=== PATIENT | female | born 1995 | race Caucasian/White ===

== ENCOUNTER → 2016-12-07 | Outpatient (CLI) | payer BC ==
[~2016-12-07] MED LIST: BCPILLS PO
== END | disposition home or self-care (01) ==
LOC: C.PAPS 12:04
PROVIDERS: ATTEND Obstetrics & Gynecology
DX: Z01.419 Encounter for gynecological examination (general) (routine) without abnormal findings (principal)

== ENCOUNTER → 2016-12-07 | Outpatient (CLI) | payer BC ==
[2016-12-09 00:16] LABS: CHLAMYDIA TRACH RNA*** NOT DETECTED (NOT DETECTED); GC (NEIS GONORRHOEAE)RNA** NOT DETECTED (NOT DETECTED)
== END | disposition home or self-care (01) ==
LOC: C.LABSPEC 11:33
PROVIDERS: ATTEND Obstetrics & Gynecology
DX: Z01.419 Encounter for gynecological examination (general) (routine) without abnormal findings (principal)

== ENCOUNTER 2022-09-08 06:17 | Inpatient (IN) ==
[2022-09-08] MEDS ORDERED: LACTATED RINGER'S 1,000 ML IV PRN (07:27)
[2022-09-08] MEDS ORDERED: ONDANSETRON INJ 2 MG/ML 2 ML VIAL IV PRN ×2 (07:27→16:11)
[2022-09-08] MEDS ORDERED: ONDANSETRON 4 MG OD TAB PO PRN (07:27)
[2022-09-08 07:49] LABS: Basophils # (auto) 0.07 K/uL (0-0.2); Basophils % (auto) 0.4 %; Eosinophils # (auto) 0.05 K/uL (0-0.50); Eosinophils % (auto) 0.3 %; Hematocrit (blood only) 34.9 % (34.1-44.9); Immature Granulocytes # (auto) 0.49 K/uL (0.00-0.02); Immature Granulocytes % (auto) 2.8 %; Lymphocytes % (auto) 8.7 %; Mean Corpuscular Hemoglobin 31.4 pg (25.0-34.0); Mean Corpuscular Hgb Conc 34.4 g/dL (32.0-36.0); Mean Corpuscular Volume 91.4 fL (80.0-100.0); Mean Platelet Volume 10.6 fL (9.4-12.3); Monocytes # (auto) 0.77 K/uL (0.24-0.82); Monocytes % (auto) 4.5 %; Neutrophils # (auto) 14.36 K/uL (1.4-6.5); Neutrophils % (auto) 83.3 %; Platelet Count 146 K/uL (130-400); RDW Coefficient of Variation 12.6 % (11.5-14.5); RDW Standard Deviation 41.4 fL (36.4-46.3); Red Blood Count 3.82 M/uL (3.93-5.22); White Blood Count 17.24 K/ul (4.8-10.8)
--- NOTE | 2022-09-08 08:07 | History & Physical Report ---
Date of Service September 08, 2022 Assessment & Plan (1) 38 weeks gestation of : (2) Abdominal pain in : Plan outpt status. bps are elevated. labs pending. ivf bolusing. zofran given. will see if meets criteria for gest htn or if labs abnl in interim. pt and partner aware. nst reactive. History of Present Illness Chief Complaint: abdominal pain, n/v, 38wks Primary Care Provider: Shana Bermudez MD 27yo at 38+wks presents to LD with abdominal pain/cramps, back pain and nausea vomiting x 12hr. She called early this am saying symptoms were worsening and advised to come in. Denies rom, vb. +FM. ? ctx. Denies sims, visual change. No ruq pain, her crampy pain is more abdominal. PNC c/b depression. PNL rh pos, ri, gbs neg. Allergies Allergy/AdvReac Type Severity Reaction Status Date / Time No Known Allergies Allergy Verified 09/06/22 11:46 Home Medications Medication Instructions Recorded Confirmed Type bupropion HCl 150 mg 24 hr tablet, 150 mg PO QAM 02/01/22 09/08/22 History extended release (Wellbutrin XL) prenat.vits,luis antonio,[id number] 1 tab PO DAILY 02/01/22 09/08/22 History Patient History Medical History (Updated 09/08/22 @ 08:27 by Michelle Garcia MD, FACOG) Depression No acute medical problems Surgical History S/P wisdom tooth extraction Social History (Updated 09/08/22 @ 06:35 by Nury Miranda) Smoking Status: Never smoker Hx Alcohol Use: No Hx Substance Use: No Preferred Language: Algerian Communication Ability: Effective Edger Automatic Required: No Beliefs That Will Affect Care: None marital status: marital status details: Dagoberto [phone] Current Living Situation: Spouse Current Living Situation Comment: lives with spouse, 4 cats, spouse to change litter current occupational status: employed 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 no clonus Psychiatric: A+Ox3, euthymic affect Genitourinary: Manual OB Exam: + cervical dilation (per nurse) 1 cm OB Exam Monitor Tracing: + external FHT monitor used, + external uterine monitor used (irritability), + category I and + normal FHT variability Results & Data ([facility]) Vital Signs (Past 12 Hours) Vital Signs Temp Pulse Resp BP 09/08/22 07:49 90 143/102 H 09/08/22 07:45 88 136/100 09/08/22 07:39 90 136/92 09/08/22 07:21 83 141/100 H 09/08/22 07:11 82 137/97 09/08/22 07:01 80 136/97 09/08/22 06:34 88 146/98 H 09/08/22 06:37 98.2 F 18 Coding Level of Care Code None Diagnoses 38 weeks gestation of Z3A.38 Abdominal pain in O26.899; R10.9
[2022-09-08 08:29] LABS: Creatinine Urine Random 101.5 mg/dl; Protein Creatinine Ratio Urine 0.1 (0-0.2); Total Protein Urine Random 10.8 mg/dl (0-11.9)
[2022-09-08 09:02] LABS: Albumin Globulin Ratio 1.2 (0.9-2); Albumin Level 3.3 gm/dl (3.4-5.0); BUN Creatinine Ratio 8.1 (10-20); Bilirubin,Total 0.8 mg/dl (0.2-1.0); Creatinine Clr Calc Pharmacy 78.5 ml/min; Est GFR (African American) 78.8 ml/min; Globulin 2.7 gm/dl (2.5-4.0)
[2022-09-08] MEDS ORDERED: LIDOCAINE 1% LOCAL 20 ML VIAL INFIL PRN (09:25)
[2022-09-08] MEDS ORDERED: OXYTOCIN 30 UNITS/500 ML BAG IV PRN ×2 (09:25→09:59)
[2022-09-08] MEDS ORDERED: BUTORPHANOL TARTRATE 1 MG/ML VIAL IV ONE ×2 (09:38→12:37)
--- NOTE | 2022-09-08 09:41 | History & Physical Report ---
Date of Service September 08, 2022 Assessment & Plan (1) 38 weeks gestation of : (2) Preeclampsia: Plan plan admission for probable preeclampsia. Patient continues to have pain and has worsened since admission. May be in early labor. Pressures are elevated but not severe. Her etl data architect is elevated as well. Plan to hydrate well. moctezuma placed for cervical ripening. Plan pit. Will treat pain with Stadol right now. Likely will need an epidural. Will continue to monitor closely. History of Present Illness Chief Complaint: abdominal pain Primary Care Provider: Shana Bermudez MD Patient is a 27yowf with iup at 38 3/7 weeks who presents to labor and delivery complaining of all over abdominal pain. She has had intermittent boughts of this for the last several weeks. Patient notes is is lower abdomen and wrapping around from the back. She notes this is associated with n/v. wbc is 17K, h/h nl, plts nl, lfts nl. pro/etl data architect ratio is 0.1. etl data architect is 1.11 up by 50% since checked in 08/13. Pressures have also been elevated here in labor and delivery. I think the patient is developing preeclampsia and plan for manuela ction. Patient notes that her pain is getting worse. Her uterus is palpating soft during this time, she has lillian. no lof/vb. +fm. and Delivery Plans Covid Vaccine x 2 (Pfizer) Flu shot given 02/18/22 SB Flu shot given 07/01/22 SB multiple evaluations for abdominal pain OB Labs: Blood Type A Positive 02/24/22 Antibody Screen NEGATIVE 02/24/22 Hemoglobin 13.0 g/dl (12.0-16.0) 08/08/22 Hematocrit 37.0 % (34.1-44.9) 08/08/22 Mean Corpuscular Volume 90.2 fL (80.0-100.0) 08/08/22 Platelet Count 163 K/uL (130-400) 08/08/22 Rubella IgG Antibody Immune (Immune) 02/24/22 Rapid Plasma Reagin Nonreactive (Nonreactive) 02/24/22 Hepatitis B Surface Antigen. NON-REACTIVE (NON-REACTIVE) 02/24/22 Hepatitis C Antibody (EIA) NON-REACTIVE (NON-REACTIVE) 02/24/22 HIV (1&2) Ag and Ab Confirmation NON-REACTIVE (NON-REACTIVE) 02/24/22 Glucose 1 Hour 50 gm Load 72 mg/dl (70-130) 07/01/22 Maternal Serum Alpha Fetoprotein 48.9 ng/mL 04/06/22 OB Optional Labs: Chlamydia trachomatis RNA NOT DETECTED (NOT DETECTED) 02/09/22 Neisseria gonorrhoeae RNA NOT DETECTED (NOT DETECTED) 02/09/22 Alpha Fetoprotein Triple Screen SEE NOTE 04/06/22 Labs Reviewed: cfdna-low risk--mln Declines cf/sma--mln 02/24/22- Hep B- Non reactive, Hep C- Non reactive, HIV- Non reactive afp neg gbs neg Allergies Allergy/AdvReac Type Severity Reaction Status Date / Time No Known Allergies Allergy Verified 09/06/22 11:46 Home Medications Medication Instructions Recorded Confirmed Type bupropion HCl 150 mg 24 hr tablet, 150 mg PO QAM 02/01/22 09/08/22 History extended release (Wellbutrin XL) prenat.vits,luis antonio,[id number] 1 tab PO DAILY 02/01/22 09/08/22 History Patient History Medical History (Updated 09/08/22 @ 10:04 by Candy Barbour MD, FACOG) Depression No acute medical problems Surgical History S/P wisdom tooth extraction Social History (Updated 09/08/22 @ 06:35 by Nury Miranda) Smoking Status: Never smoker Hx Alcohol Use: No Hx Substance Use: No Preferred Language: Amharic Communication Ability: Effective Pole Framer Machine Required: No Beliefs That Will Affect Care: None marital status: marital status details: Dagoberto [phone] Current Living Situation: Spouse Current Living Situation Comment: lives with spouse, 4 cats, spouse to change litter current occupational status: employed 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 Psychiatric: A+Ox3, euthymic affect Genitourinary: cx--1/80/-2/soft/ toco--lillian, irritability efm--130s with mod variability, accels to 170s, no decels speculum placed , moctezuma placed through cervix, balloon inflated to 35cc and attached to leg Results [facility] Data ([facility]) Vital Signs (Past 12 Hours) Vital Signs Temp Pulse Resp BP 09/08/22 08:50 82 154/94 H 09/08/22 08:20 86 136/95 09/08/22 07:49 90 143/102 H 09/08/22 07:45 88 136/100 09/08/22 07:39 90 136/92 09/08/22 07:21 83 141/100 H 09/08/22 07:11 82 137/97 09/08/22 07:01 80 136/97 09/08/22 06:34 88 146/98 H 09/08/22 06:37 36.8 C 18 Coding Level of Care Code None Diagnoses 38 weeks gestation of Z3A.38 Preeclampsia O14.90
[2022-09-08] MEDS: LACTATED RINGER'S 1,000 ML IV PRN ×3 (12:52→22:14)
[2022-09-08] MEDS ORDERED: fentaNYL citrate 100 MCG/2 ML VIAL ONE (15:53)
[2022-09-08] MEDS ORDERED: SODIUM CHLORIDE 0.9% INJ 10 ML VIAL ONE (15:53)
[2022-09-08] MEDS ORDERED: BUPIVACAINE 0.25% 30 ML VIAL ONE ×2 (15:53→21:01)
[2022-09-08] MEDS ORDERED: ePHEDrine sulfate 50 MG/ML AMP ONE (15:53)
[2022-09-08] MEDS ORDERED: LIDOCAINE 2%/EPINEPHRINE 1:200,000 20 ML SDV ONE ×2 (15:53→21:14)
[2022-09-08] MEDS ORDERED: fentaNYL 2MCG/ML ROPIVACAINE 1.25MG/ML 100 ML BAG EPI ONE (15:54)
[2022-09-08] MEDS ORDERED: NALOXONE HCL 1 MG in SODIUM CHLORIDE 0.9% 1000ML 1,000 ML IV PRN (16:11)
[2022-09-08] MEDS ORDERED: NALOXONE HCL 0.4 MG/1 ML VIAL/CARP IV PRN (16:11)
[2022-09-08] MEDS ORDERED: diphenhydrAMINE 50 MG/ML VIAL IV PRN (16:11)
[2022-09-08] MEDS ORDERED: ePHEDrine sulfate 50 MG/ML AMP IV PRN (16:11)
[2022-09-08] MEDS ORDERED: NALBUPHINE HCL INJ 10 MG/ML AMP IV PRN (16:11)
--- NOTE | 2022-09-08 16:16 | Anesthesiology Consultation ---
Date of Service September 08, 2022 Assessment & Plan (1) Encounter for pre-operative examination: Chart Review Chart Review: Patient NOT seen in Pre Admission Testing and Acceptable Risk for Labor Epidural Consults Requested none History Height/Weight Height: 5 ft 4 in Weight: 81.193 kg Allergies Allergy/AdvReac Type Severity Reaction Status Date / Time No Known Allergies Allergy Verified 09/08/22 11:25 Medications Home Medications Medication Instructions Recorded Confirmed Last Taken bupropion HCl 150 mg 24 hr tablet, 150 mg PO QAM 02/01/22 09/08/22 09/07/22 09:00 extended release (Wellbutrin XL) prenat.vits,luis antonio,[id number] 1 tab PO DAILY 02/01/22 09/08/22 09/07/22 09:00 Active Medications Generic Name Dose Route Start Last Admin Trade Name Freq PRN Reason Stop Dose Admin Lactated Ringer's 1,000 mls @ 125 mls/hr 09/08/22 07:27 09/08/22 12:53 Lr IV 10/08/22 07:26 Infused .Q8H PRN Infusion L&D Protocol Protocol Lactated Ringer's 1,000 mls @ 125 mls/hr 09/08/22 09:25 09/08/22 16:28 Lr IV 09/10/22 09:24 999 mls/hr .Q8H PRN Administration L&D Protocol Protocol Oxytocin 30 units in 500 mls @ 5 mls/hr 09/08/22 09:59 09/08/22 13:30 Pitocin IV 09/10/22 09:58 0.3 units/hr .Q24H PRN 5 mls/hr Labor Induction/Augmentation Titration Protocol 0.3 UNITS/HR Ondansetron HCl 4 mg 09/08/22 07:27 09/08/22 08:16 Ondansetron Inj 2 Mg/Ml 2 Ml Vial IV 10/08/22 07:26 4 mg Q4H PRN Administration Nausea And Vomiting Past Medical History Medical History Depression No acute medical problems Past Surgical History Surgical History S/P wisdom tooth extraction Social History Smoking Status: Never smoker Hx Alcohol Use: No Hx Substance Use: No substance use type: does not use Physical Exam Vital Signs Last Vital Signs Temp 36.8 C 09/08/22 15:37 Pulse 82 09/08/22 15:46 Resp 18 09/08/22 15:37 BP 156/101 H 09/08/22 15:46 Testing Laboratory Results 09/08/22 07:36 09/08/22 07:36
[2022-09-08] MEDS: fentaNYL 2MCG/ML ROPIVACAINE 1.25MG/ML 100 ML BAG EPI PRN ×2 (16:38→23:23)
--- NOTE | 2022-09-08 18:32 | Labor Progress Brief Note ---
Date of Service September 08, 2022 Subjective Patient got epidural and comfortable. bulb has fallen out. Assessment & Plan (1) Preeclampsia: Plan increase pitocin. blood pressures reasonable. fetus category one. anticipate . Admission and Anticipated Discharge Date Admission Date: September 08, 2022 Physical Exam Physical Exam: cx--5/80/-2, bloody show toco--q3-5, pit at 5 efm--130s with mod variability, accels to 150s, no decels arom clear fluid Results & Data ([facility]) Vital Signs (Past 12 Hours) Vital Signs Temp Pulse Resp BP Pulse Ox 09/08/22 18:24 100 H 96 09/08/22 18:19 95 H 97 09/08/22 18:16 84 133/86 09/08/22 18:14 91 H 96 09/08/22 18:09 98 H 97 09/08/22 18:04 82 96 09/08/22 18:01 96 H 138/89 09/08/22 17:59 95 H 97 09/08/22 17:54 100 H 96 09/08/22 17:49 99 H 97 09/08/22 17:46 93 H 134/92 09/08/22 17:44 94 H 97 09/08/22 17:39 93 H 97 09/08/22 17:34 90 97 09/08/22 17:31 111 H 132/89 09/08/22 17:29 98 H 97 09/08/22 17:24 100 H 98 09/08/22 17:19 109 H 98 09/08/22 17:16 110 H 18 130/83 09/08/22 17:14 98 H 96 09/08/22 17:11 109 H 129/88 09/08/22 17:09 96 H 97 09/08/22 17:06 91 H 132/84 09/08/22 17:04 108 H 98 09/08/22 17:00 117 H 129/80 09/08/22 16:59 111 H 98 09/08/22 16:56 118 H 138/93 09/08/22 16:54 113 H 99 09/08/22 16:49 120 H 99 09/08/22 16:50 109 H 138/90 09/08/22 16:48 115 H 132/86 09/08/22 16:46 110 H 141/90 H 09/08/22 16:44 98 09/08/22 16:44 104 H 09/08/22 16:44 100 H 145/94 H 09/08/22 16:42 98 H 141/91 H 09/08/22 16:39 89 99 09/08/22 16:40 96 H 154/97 H 09/08/22 16:38 96 H 143/94 H 09/08/22 16:36 102 H 145/92 H 09/08/22 16:34 98 H 96 09/08/22 16:29 96 H 99 09/08/22 16:24 95 H 96 09/08/22 15:46 82 156/101 H 09/08/22 15:43 76 160/108 H 09/08/22 15:42 73 154/106 H 09/08/22 15:40 71 152/103 H 09/08/22 15:37 18 09/08/22 15:37 36.8 C 18 09/08/22 14:39 73 20 141/97 H 09/08/22 13:38 85 20 140/95 09/08/22 12:38 68 20 152/92 H 09/08/22 11:38 77 153/97 H 09/08/22 11:08 20 09/08/22 11:08 36.8 C 20 09/08/22 10:39 78 18 147/99 H 09/08/22 08:50 82 154/94 H 09/08/22 08:20 86 136/95 09/08/22 07:49 90 143/102 H 09/08/22 07:45 88 136/100 09/08/22 07:39 90 136/92 09/08/22 07:21 83 141/100 H 09/08/22 07:11 82 137/97 09/08/22 07:01 80 136/97 09/08/22 06:34 88 146/98 H 09/08/22 06:37 36.8 C 18 Coding Level of Care Code None Diagnoses Preeclampsia O14.90
[2022-09-08] MEDS ORDERED: LABETALOL HCL IV 5 MG/ML 20ML IV STA (21:12)
--- NOTE | 2022-09-08 22:47 | Labor Progress Brief Note ---
Date of Service September 08, 2022 Subjective Patient continues to be intermittently very painful. Assessment & Plan (1) Preeclampsia: Plan Patient has poor pain tolerance and poor pain management at this time. Plan to have anesthesia evaluate again. Her pressures are mildly high when comfortable, but when she is uncomfortable, her pressures become quite elevated and she is also shaking. I do not believe her elevated pressures are from pet, she has no s/s of pet currently. Plan to place moctezuma to see if constantly empty bladder helps. IUPC placed to evaluate contractions and initially look quite poor. Fetus category one. Will need to increase pitocin to get an adequate contraction pattern. Will continue to attempt to get better pain management. Admission and Anticipated Discharge Date Admission Date: September 08, 2022 Physical Exam Physical Exam: cx--100/-1, some molding toco--q2-3min, pit at 10 efm--130s with mod variability, accels to 160s, no decels Results & Data ([facility]) Vital Signs (Past 12 Hours) Vital Signs Temp Pulse Resp BP Pulse Ox 09/08/22 19:00 36.8 C 18 09/08/22 22:39 101 H 98 09/08/22 22:38 99 H 169/106 H 09/08/22 22:34 99 H 99 09/08/22 22:29 76 100 09/08/22 22:24 99 H 99 09/08/22 22:19 95 H 98 09/08/22 22:14 106 H 97 09/08/22 22:13 93 H 157/82 H 09/08/22 22:05 16 09/08/22 22:05 16 09/08/22 22:09 100 H 96 09/08/22 22:04 98 H 96 09/08/22 22:03 95 H 148/81 H 09/08/22 21:59 98 H 96 09/08/22 21:54 93 H 97 09/08/22 21:53 100 H 148/81 H 09/08/22 21:49 100 H 96 09/08/22 21:44 102 H 96 09/08/22 21:43 100 H 148/76 H 09/08/22 21:39 106 H 96 09/08/22 20:47 18 09/08/22 20:47 36.9 C 18 09/08/22 21:34 102 H 96 09/08/22 21:32 112 H 144/78 H 09/08/22 21:29 96 09/08/22 21:29 103 H 09/08/22 21:29 105 H 144/77 H 09/08/22 21:24 101 H 96 09/08/22 21:22 100 H 149/82 H 09/08/22 21:20 103 H 147/82 H 09/08/22 21:19 110 H 97 09/08/22 21:18 99 H 149/87 H 09/08/22 21:16 94 H 162/78 H 09/08/22 21:14 88 158/75 H 99 09/08/22 21:12 98 H 173/104 H 09/08/22 21:10 91 H 172/107 H 09/08/22 21:09 96 H 98 09/08/22 21:06 90 177/98 H 09/08/22 21:04 88 97 09/08/22 21:03 91 H 176/104 H 09/08/22 20:59 91 H 97 09/08/22 20:54 97 H 170/107 H 97 09/08/22 20:53 94 H 169/101 H 09/08/22 20:49 82 97 09/08/22 20:44 91 H 97 09/08/22 20:39 93 H 99 09/08/22 20:34 104 H 98 09/08/22 20:29 84 98 09/08/22 20:24 99 09/08/22 20:24 87 09/08/22 20:24 94 H 136/91 09/08/22 20:22 87 157/101 H 09/08/22 20:19 80 97 09/08/22 20:14 83 96 09/08/22 20:09 91 H 96 09/08/22 20:04 92 H 98 09/08/22 19:59 94 H 97 09/08/22 19:54 105 H 95 09/08/22 19:53 97 H 131/82 09/08/22 19:49 97 H 95 09/08/22 19:45 98 H 94 22 19:44 94 H 95 22 19:39 96 H 96 22 19:34 97 H 95 09/08/22 19:29 105 H 95 09/08/22 19:24 102 H 96 09/08/22 19:22 106 H 128/81 09/08/22 19:19 103 H 96 09/08/22 19:14 101 H 95 09/08/22 19:09 102 H 96 09/08/22 19:04 108 H 96 09/08/22 18:59 95 H 97 09/08/22 18:54 93 H 96 09/08/22 18:52 110 H 128/83 09/08/22 18:49 101 H 96 09/08/22 18:44 90 96 09/08/22 18:39 101 H 96 09/08/22 18:34 103 H 96 09/08/22 18:29 100 H 20 98 09/08/22 18:24 100 H 96 09/08/22 18:19 95 H 97 09/08/22 18:16 84 133/86 09/08/22 18:14 91 H 96 09/08/22 18:09 98 H 97 09/08/22 18:04 82 96 09/08/22 18:01 96 H 138/89 09/08/22 17:59 95 H 97 09/08/22 17:54 100 H 96 09/08/22 17:49 99 H 97 09/08/22 17:46 93 H 134/92 09/08/22 17:44 94 H 97 09/08/22 17:39 93 H 97 09/08/22 17:34 90 97 09/08/22 17:31 111 H 132/89 09/08/22 17:29 98 H 97 09/08/22 17:24 100 H 98 09/08/22 17:19 109 H 98 09/08/22 17:16 110 H 18 130/83 09/08/22 17:14 98 H 96 22 17:11 109 H 129/88 09/08/22 17:09 96 H 97 09/08/22 17:06 91 H 132/84 09/08/22 17:04 108 H 98 09/08/22 17:00 117 H 129/80 09/08/22 16:59 111 H 98 22 16:56 118 H 138/93 09/08/22 16:54 113 H 99 22 16:49 120 H 99 09/08/22 16:50 109 H 138/90 11/17/22 16:48 115 H 132/86 09/08/22 16:46 110 H 141/90 H 09/08/22 16:44 98 09/08/22 16:44 104 H 09/08/22 16:44 100 H 145/94 H 09/08/22 16:42 98 H 141/91 H 09/08/22 16:39 89 99 09/08/22 16:40 96 H 154/97 H 09/08/22 16:38 96 H 143/94 H 09/08/22 16:36 102 H 145/92 H 09/08/22 16:34 98 H 96 09/08/22 16:29 96 H 99 09/08/22 16:24 95 H 96 09/08/22 15:46 82 156/101 H 09/08/22 15:43 76 160/108 H 09/08/22 15:42 73 154/106 H 09/08/22 15:40 71 152/103 H 09/08/22 15:37 18 09/08/22 15:37 36.8 C 18 09/08/22 14:39 73 20 141/97 H 09/08/22 13:38 85 20 140/95 09/08/22 12:38 68 20 152/92 H 09/08/22 11:38 77 153/97 H 09/08/22 11:08 20 09/08/22 11:08 36.8 C 20 Coding Level of Care Code None Diagnoses Preeclampsia O14.90
--- NOTE | 2022-09-08 22:55 | Communication Note ---
Date of Service: September 08, 2022 contractions are not adequate, will require more pitocin. BP are wnl when not taken during a contraction and shaking. awaiting anesthesia. Explained situation to the patient and FOB. Discussed this is not unexpected.
--- NOTE | 2022-09-09 01:38 | Labor Progress Brief Note ---
Date of Service September 09, 2022 Subjective Patient painful 08/01 again. Assessment & Plan (1) Preeclampsia: Plan significant change in cervical exam and baby much lower. Discussed options at this point--readdress epidural or proceed with c/s. She initially was discussing c/s, however, so close. I think she is more uncomfortable now because the baby is low and she is feeling pressure from the head. She is agreeable to reassess by anesthesia and then see. Hope she will be able to get herself together to push. Discussed that with c/s she will have more pain pp. Admission and Anticipated Discharge Date Admission Date: September 08, 2022 Physical Exam Physical Exam: cx--rim/100/0-+1 efm--130s with mod variabiltiy, accels to 150s, no decels toco--q 2-3min Results & Data ([facility]) Vital Signs (Past 12 Hours) Vital Signs Temp Pulse Resp BP Pulse Ox 09/08/22 19:00 36.8 C 18 09/09/22 01:29 104 H 98 09/09/22 01:25 122 H 223/126 H 09/09/22 01:24 115 H 100 09/09/22 01:19 89 99 09/09/22 01:14 95 H 98 09/09/22 01:09 97 H 97 09/09/22 01:04 92 H 97 09/09/22 01:00 16 09/09/22 01:00 16 09/09/22 00:59 87 97 09/09/22 00:55 93 H 126/84 09/09/22 00:54 92 H 97 09/09/22 00:49 92 H 97 09/09/22 00:44 89 99 09/09/22 00:42 94 H 92 09/09/22 00:40 74 09/09/22 00:40 151/84 H 09/09/22 00:39 82 98 09/09/22 00:40 83 134/86 09/09/22 00:34 83 98 09/09/22 00:29 84 99 09/09/22 00:25 83 129/73 09/09/22 00:24 84 98 09/09/22 00:19 86 97 09/09/22 00:14 84 98 09/09/22 00:09 91 H 98 09/09/22 00:08 107 H 100/59 L 09/09/22 00:04 105 H 99 09/09/22 00:03 102 H 99/62 L 09/09/22 00:02 104/58 L 09/08/22 23:59 120 H 102/52 L 98 09/08/22 23:57 115 H 97/56 L 09/08/22 23:55 36.7 C 111 H 16 97/59 L 09/08/22 23:54 118 H 98 09/08/22 23:53 109 H 95/54 L 09/08/22 23:51 111 H 95/51 L 09/08/22 23:49 116 H 97/54 L 97 09/08/22 23:48 112 H 98/53 L 09/08/22 23:40 18 09/08/22 23:40 18 09/08/22 23:45 134 H 116/65 09/08/22 23:44 125 H 98 09/08/22 23:43 126 H 122/63 09/08/22 23:41 121 H 118/65 09/08/22 23:35 18 09/08/22 23:35 18 09/08/22 23:39 97 09/08/22 23:39 140 H 09/08/22 23:39 137 H 115/66 09/08/22 23:38 131 H 119/65 09/08/22 23:34 97 09/08/22 23:34 103 H 09/08/22 23:34 102 H 158/79 H 09/08/22 23:31 97 H 157/100 H 09/08/22 23:30 85 20 145/95 H 09/08/22 23:29 98 H 97 09/08/22 23:24 103 H 98 09/08/22 23:20 112 H 145/98 H 09/08/22 23:19 110 H 97 09/08/22 23:18 109 H 139/85 09/08/22 23:16 105 H 142/81 H 09/08/22 23:14 99 09/08/22 23:14 102 H 09/08/22 23:14 96 H 151/72 H 09/08/22 23:09 100 H 98 09/08/22 23:04 92 H 98 09/08/22 22:59 91 H 97 09/08/22 22:54 91 H 98 09/08/22 22:53 81 138/79 09/08/22 22:49 81 99 09/08/22 22:44 81 98 09/08/22 22:39 101 H 98 09/08/22 22:38 99 H 169/106 H 09/08/22 22:34 99 H 99 09/08/22 22:29 76 100 09/08/22 22:24 99 H 99 09/08/22 22:19 95 H 98 09/08/22 22:14 106 H 97 09/08/22 22:13 93 H 157/82 H 09/08/22 22:05 16 09/08/22 22:05 16 09/08/22 22:09 100 H 96 09/08/22 22:04 98 H 96 09/08/22 22:03 95 H 148/81 H 09/08/22 21:59 98 H 96 09/08/22 21:54 93 H 97 09/08/22 21:53 100 H 148/81 H 09/08/22 21:49 100 H 96 09/08/22 21:44 102 H 96 09/08/22 21:43 100 H 148/76 H 09/08/22 21:39 106 H 96 09/08/22 20:47 18 09/08/22 20:47 36.9 C 18 09/08/22 21:34 102 H 96 09/08/22 21:32 112 H 144/78 H 09/08/22 21:29 96 09/08/22 21:29 103 H 09/08/22 21:29 105 H 144/77 H 09/08/22 21:24 101 H 96 09/08/22 21:22 100 H 149/82 H 09/08/22 21:20 103 H 147/82 H 09/08/22 21:19 110 H 97 09/08/22 21:18 99 H 149/87 H 09/08/22 21:16 94 H 162/78 H 09/08/22 21:14 88 158/75 H 99 09/08/22 21:12 98 H 173/104 H 09/08/22 21:10 91 H 172/107 H 09/08/22 21:09 96 H 98 09/08/22 21:06 90 177/98 H 09/08/22 21:04 88 97 11/17/22 21:03 91 H 176/104 H 1722 20:59 91 H 97 22 20:54 97 H 170/107 H 97 09/08/22 20:53 94 H 169/101 H 22 20:49 82 97 09/08/22 20:44 91 H 97 1722 20:39 93 H 99 09/08/22 20:34 104 H 98 09/08/22 20:29 84 98 09/08/22 20:24 99 1722 20:24 87 09/08/22 20:24 94 H 136/91 09/08/22 20:22 87 157/101 H 09/08/22 20:19 80 97 09/08/22 20:14 83 96 09/08/22 20:09 91 H 96 09/08/22 20:04 92 H 98 09/08/22 19:59 94 H 97 09/08/22 19:54 105 H 95 09/08/22 19:53 97 H 131/82 09/08/22 19:49 97 H 95 09/08/22 19:45 98 H 94 09/08/22 19:44 94 H 95 09/08/22 19:39 96 H 96 09/08/22 19:34 97 H 95 09/08/22 19:29 105 H 95 09/08/22 19:24 102 H 96 09/08/22 19:22 106 H 128/81 09/08/22 19:19 103 H 96 09/08/22 19:14 101 H 95 09/08/22 19:09 102 H 96 09/08/22 19:04 108 H 96 09/08/22 18:59 95 H 97 09/08/22 18:54 93 H 96 22 18:52 110 H 128/83 09/08/22 18:49 101 H 96 22 18:44 90 96 09/08/22 18:39 101 H 96 22 18:34 103 H 96 09/08/22 18:29 100 H 20 98 1722 18:24 100 H 96 09/08/22 18:19 95 H 97 1722 18:16 84 133/86 1722 18:14 91 H 96 09/08/22 18:09 98 H 97 09/08/22 18:04 82 96 09/08/22 18:01 96 H 138/89 09/08/22 17:59 95 H 97 09/08/22 17:54 100 H 96 09/08/22 17:49 99 H 97 09/08/22 17:46 93 H 134/92 09/08/22 17:44 94 H 97 09/08/22 17:39 93 H 97 09/08/22 17:34 90 97 09/08/22 17:31 111 H 132/89 09/08/22 17:29 98 H 97 09/08/22 17:24 100 H 98 09/08/22 17:19 109 H 98 09/08/22 17:16 110 H 18 130/83 09/08/22 17:14 98 H 96 09/08/22 17:11 109 H 129/88 09/08/22 17:09 96 H 97 09/08/22 17:06 91 H 132/84 09/08/22 17:04 108 H 98 09/08/22 17:00 117 H 129/80 09/08/22 16:59 111 H 98 09/08/22 16:56 118 H 138/93 09/08/22 16:54 113 H 99 09/08/22 16:49 120 H 99 09/08/22 16:50 109 H 138/90 09/08/22 16:48 115 H 132/86 09/08/22 16:46 110 H 141/90 H 09/08/22 16:44 98 09/08/22 16:44 104 H 09/08/22 16:44 100 H 145/94 H 09/08/22 16:42 98 H 141/91 H 09/08/22 16:39 89 99 09/08/22 16:40 96 H 154/97 H 09/08/22 16:38 96 H 143/94 H 09/08/22 16:36 102 H 145/92 H 09/08/22 16:34 98 H 96 09/08/22 16:29 96 H 99 09/08/22 16:24 95 H 96 09/08/22 15:46 82 156/101 H 09/08/22 15:43 76 160/108 H 09/08/22 15:42 73 154/106 H 09/08/22 15:40 71 152/103 H 09/08/22 15:37 18 09/08/22 15:37 36.8 C 18 09/08/22 14:39 73 20 141/97 H 09/08/22 13:38 85 20 140/95 Coding Level of Care Code None Diagnoses Preeclampsia O14.90
[2022-09-09] MEDS ORDERED: CARBOPROST TROMETHAMINE 250 MCG/ML AMPUL ONE (03:10)
[2022-09-09] MEDS ORDERED: HYDROCORTISONE ACETATE 25 MG SUPP PR PRN (03:15)
[2022-09-09] MEDS ORDERED: miSOPROStoL 200 MCG TAB PR ONE (03:15)
[2022-09-09] MEDS ORDERED: CARBOPROST TROMETHAMINE 250 MCG/ML AMPUL IM ONE (03:15)
[2022-09-09] MEDS ORDERED: BENZOCAINE 20% AER SPR 82.5 GM CAN EXT PRN (03:15)
[2022-09-09] MEDS ORDERED: ACETAMINOPHEN 325 MG TAB PO PRN (03:15)
[2022-09-09] MEDS ORDERED: oxyCODONE/ACETAMINOPHEN 5mg/325mg TAB PO PRN (03:15)
[2022-09-09] MEDS ORDERED: DIPHTHERIA/TETANUS/PERTUSSIS 0.5 ML SYR/VIAL IM ONE (03:15)
[2022-09-09] MEDS ORDERED: bisacodyL 10 MG SUPP PR PRN (03:15)
[2022-09-09] MEDS ORDERED: OXYTOCIN 30 UNITS/500 ML BAG IV PRN (03:15)
[2022-09-09] MEDS ORDERED: miSOPROStoL 200 MCG TAB ONE (03:24)
--- NOTE | 2022-09-09 03:24 | Delivery Summary ---
Vaginal Delivery Summary Date of Service September 09, 2022 Vaginal Delivery Summary and 1st Degree LAC Pre-operative Diagnosis: at 38 weeks preeclampsia without severe features Post-operative Diagnosis: same pph Procedure: pitocin induction arom epidural manual extraction of the placenta pr cytotec EBL: 600cc Anesthesia: epidural Procedure: The patient presented to labor and delivery with abdominal pain. Her pressures were elevated and her creatinine was found to be 1.1. Suspected preeclampsia and recommended induction. Pitocin started and arom with clear fluid. She got an epidural that was minimally effective throughout the labor. She progressed to c/c/+1. Patient then started pushing and had really good effort. The patient pushed for about 45 minutes to deliver a viable male in yunier position. The nose and mouth were bulb suctioned on the perineum and the rest of the infant was then delivered without difficulty. The baby was vigorous. The nose and mouth were again bulb suctioned and the was placed in the maternal abdomen for drying and attention. Cord was clamped and cut at one minute of life. Cord blood and segment obtained. Placenta was manually extracted, intact with a three vessel cord. Ce rvix/sulci/rectum/perineum were intact. A first degree perineal laceration and right labial laceration were repaired in the normal standard fashion. PPH was encountered after delivery of the placenta. Uterus swept again and no pocs appreciated. Patient was then given 800mcg of cytotec and IM hemobate. Hemostasis was then obtained with dilute pitocin and fundal massage. Several clots were pushed out of the uterus with massage. Conservative ebl 600cc. Apgars were 8/9. Mother and baby doing well at the end of the delivery. [facility] Vaginal Delivery Charge Delivery Type Details: and 1st Degree LAC
[2022-09-09] MEDS ORDERED: ceFAZolin 2000MG 2,000 MG/15 ML SYR IV ONE (03:45)
[2022-09-09] MEDS: IBUPROFEN 600 MG TAB PO PRN ×4 (04:02→23:10)
--- NOTE | 2022-09-09 05:26 | Anesthesia Procedure Note ---
Date of Service September 09, 2022 Anesthesia Post Epidural Note Vital Signs Vital Signs: Temp Pulse Resp BP Pulse Ox 36.8 C 105 H 18 140/84 99 09/09/22 05:11 09/09/22 05:11 09/09/22 05:11 09/09/22 05:11 09/09/22 03:09 Pain Intensity Bilateral Abdomen: Pain Intensity: 0 Episiotomy/Laceration: Pain Intensity: 0 Notes Mental Status: alert / awake / arousable and participated in evaluation Patient Amnestic to Procedure: No Nausea / Vomiting: adequately controlled Pain: adequately controlled Airway Patency, RR, SpO2: stable & adequate BP & HR: stable & adequate Hydration State: stable & adequate Neuraxial Anesthesia: was administered and sensory block is resolving Anesthetic Complications: no major complications apparent and Pt Satisfied with anesthetic care Epidural: Removed without complications and With tip intact
[2022-09-09 06:58] LABS: Hematocrit (blood only) 28.1 % (34.1-44.9); Hemoglobin 9.8 g/dl (12.0-16.0)
[2022-09-09] MEDS: PRENATAL VITAMIN 1 TAB PO SCH (07:44)
[2022-09-09] MEDS: DOCUSATE SODIUM 100 MG CAP PO SCH ×2 (07:44→20:43)
[2022-09-09] MEDS ORDERED: METHYLERGONOVINE MALEATE 0.2 MG/ML AMP IM STA (09:28)
[2022-09-09] MEDS ORDERED: OXYTOCIN 20 UNITS in LACTATED RINGER'S 1,000 ML IV SCH (10:30)
[2022-09-09] MEDS ORDERED: TRANEXAMIC ACID / 0.7% NACL 1,000 MG/100 ML BAG IV STA (10:32)
[2022-09-09] MEDS: buPROPion XL 150 MG TABCR PO SCH ×2 (11:03→14:05)
[2022-09-09] MEDS ORDERED: KETOROLAC 30 MG/ML VIAL IV PRN (11:12)
[2022-09-09] MEDS ORDERED: KETOROLAC 30 MG/ML VIAL ONE (11:15)
[2022-09-09 20:08] LABS: Hematocrit (blood only) 21.7 % (34.1-44.9); Hemoglobin 7.5 g/dl (12.0-16.0)
[2022-09-10] MEDS: IBUPROFEN 600 MG TAB PO PRN ×2 (06:46→20:06)
[2022-09-10 06:49] LABS: Hematocrit (blood only) 18.1 % (34.1-44.9); Hemoglobin 6.2 g/dl (12.0-16.0); Mean Corpuscular Hgb Conc 34.3 g/dL (32.0-36.0); Mean Corpuscular Volume 90.5 fL (80.0-100.0); Mean Platelet Volume 10.7 fL (9.4-12.3); Platelet Count 106 K/uL (130-400); RDW Coefficient of Variation 12.8 % (11.5-14.5); RDW Standard Deviation 41.4 fL (36.4-46.3); White Blood Count 20.39 K/ul (4.8-10.8)
[2022-09-10] MEDS ORDERED: SODIUM CHLORIDE 0.9% 250 ML IV PRN (07:41)
--- NOTE | 2022-09-10 07:41 | Obstetrical Progress Note ---
Date of Service September 10, 2022 Assessment & Plan (1) Preeclampsia: (2) state: (3) hemorrhage, delivered: Plan 27 yo PP1 from c/b hemorrhage at delivery and additional PPH yesterday during the day requiring additional uterotonics and 1g TXA, doing well -Meeting all pp milestones. Denies feeling symptomatic -H/H 6.2 this AM, will give 1u prbc transfusion, pre-treat, plan for f/u h/h 1hr after transfusion. -A+/rubella immune/ -f/u 6 weeks for appt. Continue routine pp care, prbc today Subjective Ambulation: ambulating normally Voiding: no voiding problems Passing Gas:: Yes Diet Tolerance:: regular diet Lochia:: Small Feeding Type:: breast feeding Pain well managed with medication. Not feeling lightheaded or dizzy w/ ambulation, just tired but thinks still tired from delivery Review of Systems Denies fevers, chills, n/v, TAMEZ, CP, SOB Physical Exam Constitutional WD/WN, vitals as above no acute distress Respiratory normal respiratory effort, lungs clear to auscultation Cardiovascular RRR, no murmur, no edema Gastrointestinal (Abdomen) Percussion/Palpation: abdomen soft; abdomen nontender fundus firm at umbilicus and NT Musculoskeletal BLE symmetric, nonerythematous, nontender Results & Data ([facility]) Vital Signs (Past 12 Hours) Vital Signs Temp Pulse Resp BP Pulse Ox O2 Del Method 09/10/22 04:30 98.4 F 108 H 20 120/75 97 Room Air 09/09/22 22:52 97.7 F 81 18 104/71 99 Room Air
[2022-09-10] MEDS ORDERED: diphenhydrAMINE Capsule 25 MG CAP PO ONE (07:43)
[2022-09-10] MEDS: DOCUSATE SODIUM 100 MG CAP PO SCH ×2 (08:38→20:06)
[2022-09-10] MEDS: buPROPion XL 150 MG TABCR PO SCH (08:39)
[2022-09-10] MEDS: PRENATAL VITAMIN 1 TAB PO SCH (08:39)
[2022-09-10] MEDS: FERROUS SULFATE 325 MG TAB PO SCH ×2 (08:39→20:06)
[2022-09-10 13:23] LABS: Hematocrit (blood only) 21.4 % (34.1-44.9); Hemoglobin 7.3 g/dl (12.0-16.0)
[2022-09-10] MEDS ORDERED: bisacodyL 5 MG TABEC PO SCH (20:00)
--- NOTE | 2022-09-11 07:40 | Obstetrical Progress Note ---
Date of Service September 11, 2022 Assessment & Plan (1) state: lochia now normal amount -feels better since transfusion so will discharge to home Hgb now 7.2 continue with iron daily plus vitamin follow up in 6 weeks or PRN Subjective Ambulation: ambulating normally Voiding: no voiding problems Passing Gas:: Yes Diet Tolerance:: regular diet Lochia:: Moderate Feeding Type:: breast feeding feeling better since transfusion yesterday. able to ambulate without lightheadedness or dizziness. lochia moderate to small. no clots noted. Review of Systems All systems reviewed & are unremarkable except as noted in HPI & below Physical Exam Constitutional WD/WN, vitals as above Psychiatric A+Ox3, euthymic affect Genitourinary OB Exam Abdomen: + fundal height Fundus: + firm and + relation to umbilicus (1 below) Results & Data ([facility]) Vital Signs (Past 12 Hours) Vital Signs Temp Pulse Resp BP BP Pulse Ox O2 Del Method 09/10/22 23:13 97.9 F 98 H 18 115/71 97 Room Air 09/10/22 20:00 98.1 F 98 H 16 116/76 Room Air
[2022-09-11] MEDS: DOCUSATE SODIUM 100 MG CAP PO SCH (08:27)
[2022-09-11] MEDS: PRENATAL VITAMIN 1 TAB PO SCH (08:27)
[2022-09-11] MEDS: buPROPion XL 150 MG TABCR PO SCH (08:27)
[2022-09-11] MEDS: FERROUS SULFATE 325 MG TAB PO SCH (08:27)
[2022-09-11] MEDS: IBUPROFEN 600 MG TAB PO PRN (08:28)
== END 2022-09-11 14:05 | disposition home or self-care (01) | DRG 807 ==
LOC: OPB 06:17 → 4S1 06:18 → 4E2 09-09 05:50
DX: R10.9 Unspecified abdominal pain; Z37.0 Single live birth; O70.0 First degree perineal laceration during delivery; Z3A.38 38 weeks gestation of pregnancy; O14.94 Unspecified pre-eclampsia, complicating childbirth; O26.893 Other specified pregnancy related conditions, third trimester; O72.1 Other immediate postpartum hemorrhage

== ENCOUNTER 2024-05-13 02:55 | Inpatient (IN) ==
[2024-05-13] MEDS ORDERED: LIDOCAINE 1% LOCAL 20 ML VIAL INFIL PRN (03:39)
[2024-05-13] MEDS ORDERED: CALCIUM CARBONATE 500 MG CHEWABLE TAB PO PRN (03:39)
[2024-05-13] MEDS ORDERED: METHYLERGONOVINE MALEATE 0.2 MG/ML AMP IM PRN (03:39)
[2024-05-13] MEDS ORDERED: ACETAMINOPHEN 325 MG TAB PO PRN ×2 (03:39→13:03)
[2024-05-13 04:18] LABS: Hematocrit (blood only) 37.4 % (37.0-47.0); Hemoglobin 12.8 g/dl (12.0-16.0); Mean Corpuscular Hemoglobin 31.2 pg (25.0-34.0); Mean Corpuscular Hgb Conc 34.2 g/dL (32.0-36.0); Mean Corpuscular Volume 91.2 fL (80.0-100.0); Mean Platelet Volume 11.3 fL (9.4-12.4); Platelet Count 130 K/uL (130-400); RDW Coefficient of Variation 12.7 % (11.5-14.5); RDW Standard Deviation 41.8 fL (36.4-46.3); White Blood Count 11.08 K/ul (4.8-10.8)
[2024-05-13] MEDS: LACTATED RINGER'S 1,000 ML IV PRN (05:15)
[2024-05-13] MEDS ORDERED: SODIUM CHLORIDE 0.9% PF INJ 10 ML VIAL EPI PRN (05:38)
[2024-05-13] MEDS ORDERED: NALOXONE HCL 0.4 MG/1 ML VIAL/CARP IV PRN (05:38)
[2024-05-13] MEDS ORDERED: BUPIVACAINE 0.25% PF 30 ML VIAL EPI STA (05:38)
[2024-05-13] MEDS ORDERED: fentaNYL citrate PF 100 MCG/2 ML VIAL EPI STA (05:38)
[2024-05-13] MEDS ORDERED: diphenhydrAMINE 50 MG/ML VIAL IV PRN (05:38)
[2024-05-13] MEDS ORDERED: BUPIVACAINE 0.25% PF 30 ML VIAL EPI PRN (05:38)
[2024-05-13] MEDS ORDERED: LIDOCAINE 2% MPF LOCAL 5 ML VIAL EPI PRN (05:38)
[2024-05-13] MEDS ORDERED: NALBUPHINE HCL 5 MG in SYRINGE 0 ML IV PRN (05:38)
[2024-05-13] MEDS ORDERED: fentANYL 2 MCG/ML BUPIVacaine 0.125%-NSS 100ML BAG EPI PRN (05:38)
[2024-05-13] MEDS ORDERED: LIDOCAINE 2%/EPINEPHRINE 1:200,000 20 ML PF EPI STA (05:38)
[2024-05-13] MEDS ORDERED: ROPIVACAINE 0.5% PF 5 MG/ML 20 ML VIAL EPI PRN (05:38)
[2024-05-13] MEDS ORDERED: fentaNYL citrate PF 100 MCG/2 ML VIAL EPI PRN (05:38)
[2024-05-13] MEDS ORDERED: ePHEDrine sulfate 50 MG/ML AMP IV PRN (05:38)
[2024-05-13] MEDS ORDERED: NALOXONE HCL 1 MG in SODIUM CHLORIDE 0.9% 1,000 ML IV PRN (05:38)
--- NOTE | 2024-05-13 05:40 | Anesthesiology Consultation ---
Date of Service May 13, 2024 Assessment & Plan Chart Review Chart Review: Patient NOT seen in Pre Admission Testing, Acceptable Risk for Labor Epidural and Patient seen in Pre Admission Testing Consults Requested none ASA ASA2 Proposed Anesthesia Anesthesia Type: Labor Epidural Risk / Benefits Reviewed With: PT / POA / Parent / Guardian, Accepts Plan and Informed Consent Obtained History Height/Weight Height: 5 ft 4 in Weight: 81.647 kg Allergies Allergy/AdvReac Type Severity Reaction Status Date / Time No Known Allergies Allergy Verified 05/07/24 11:56 Medications Home Medications Medication Instructions Recorded Confirmed Last Taken bupropion HCl 150 mg 24 hr tablet, 300 mg PO QAM 02/01/22 05/13/24 05/12/24 06:30 extended release (Wellbutrin XL) prenat.vits,luis antonio,[id number]-[id number] 1 tab PO DAILY 02/01/22 05/13/24 05/12/24 06:30 aspirin 81 mg tablet,delayed 81 mg PO DAILY 05/13/24 05/13/24 05/12/24 06:30 release Active Medications Generic Name Dose Route Start Last Admin Trade Name Freq PRN Reason Stop Dose Admin Lactated Ringer's 1,000 mls @ 125 mls/hr 05/13/24 03:39 05/13/24 05:15 Lr IV 05/15/24 03:38 999 mls/hr .Q8H PRN Administration L&D Protocol Protocol NPO Date Last Intake of Fluids: 05/13/24 Time Last Intake of Fluids: 05:00 Date Last Intake of Solids: 05/12/24 Time Last Intake of Solids: 19:00 Past Medical History Medical History Varicella vaccination hemorrhage, delivered Preeclampsia Depression Exercise / Class Metabolic Activity 1 > 8 Run/Swim/Ski/Tennis Past Family History Family History Aunt Breast cancer Denies family history of Ovarian cancer Colorectal cancer Past Surgical History Surgical History S/P wisdom tooth extraction Past Anesthesia History No Hx of Anesthesia Complications and No Family Hx of Anesthesia Complications History of PONV No Hx of PONV and No Hx of Motion Sickness Social History Smoking Status: Never smoker Do You Dip or Chew Tobacco: No Hx Alcohol Use: No Hx Substance Use: No substance use type: does not use Review of Systems ROS Unobtainable: All systems reviewed & are unremarkable except as noted in HPI & below Physical Exam Vital Signs Last Vital Signs Temp 36.9 C 05/13/24 03:08 Pulse 87 05/13/24 05:37 Resp 18 05/13/24 03:08 BP 135/84 05/13/24 03:12 Pulse Ox 100 05/13/24 05:37 ENMT Mouth: no TMJ abnormality Thyromental Distance: > or= 3.5 Finger Breadths Mallampati Class: II Neck normal visual inspection and trachea midline; neck extension not limited Respiratory normal respiratory effort Auscultation: lungs clear to auscultation bilaterally Cardiovascular Rate/Rhythm: regular rate and regular rhythm Heart Sounds: no murmur Musculoskeletal Spine: normal cervical ROM Extremities: full ROM of extremities Neurologic moves all extremities Psychiatric Orientation: alert and oriented x 3 Testing Laboratory Results 05/13/24 04:06 Blood Type A Positive 05/13/24 04:06 Antibody Screen NEGATIVE 05/13/24 04:06
[2024-05-13] MEDS: BUPIVACAINE 0.25% PF 30 ML VIAL ONE (05:59)
[2024-05-13] MEDS: fentANYL 2 MCG/ML BUPIVacaine 0.125%-NSS 100ML BAG ONE (05:59)
[2024-05-13] MEDS: LIDOCAINE 2%/EPINEPHRINE 1:200,000 20 ML PF ONE (05:59)
[2024-05-13] MEDS: fentaNYL citrate PF 100 MCG/2 ML VIAL ONE (05:59)
[2024-05-13] MEDS: SODIUM CHLORIDE 0.9% PF INJ 10 ML VIAL ONE (06:00)
[2024-05-13] MEDS: ePHEDrine sulfate 50 MG/ML AMP ONE (06:05)
[2024-05-13] MEDS ORDERED: ONDANSETRON INJ 2 MG/ML 2 ML VIAL IV STA (06:08)
[2024-05-13] MEDS: SODIUM CHLORIDE 0.9% PF INJ 10 ML VIAL EPI STA (06:25)
--- NOTE | 2024-05-13 06:26 | History & Physical Report ---
Date of Service May 13, 2024 Assessment & Plan (1) Normal labor: Plan admitted for labor. fetus category one. Just now getting epidural. arom/pit as indicated. Plan . Admission and Anticipated Discharge Date Admission Date: May 13, 2024 History of Present Illness Chief Complaint: contractions Primary Care Provider: Shana Bermudez MD Patient is a 29yowf with iu pat 38 2/7 weeks who presents to labor and delivery with contractions. no lof/vb. +fm. and Delivery Plans Hx preeclampsia with prior *low dose aspirin *baseline PET labs and 24hr urine--109 OB Labs: Blood Type A Positive 10/18/23 Antibody Screen NEGATIVE 10/18/23 Hemoglobin 12.4 g/dl (12.0-16.0) 03/20/24 Hematocrit 37.2 % (37.0-47.0) 03/20/24 Mean Corpuscular Volume 87.0 fL (80.0-100.0) 10/18/23 Platelet Count 210 K/uL (130-400) 10/18/23 Rubella IgG Antibody Immune (Immune) 10/18/23 Rapid Plasma Reagin Nonreactive (Nonreactive) 10/18/23 Hepatitis B Surface Antigen. NON-REACTIVE (NON-REACTIVE) 10/18/23 Hepatitis C Antibody (EIA) NON-REACTIVE (NON-REACTIVE) 10/18/23 HIV (1&2) Ag and Ab Confirmation NON-REACTIVE (NON-REACTIVE) 10/18/23 Glucose 1 Hour 50 gm Load 90 mg/dl (70-130) 03/20/24 Maternal Serum Alpha Fetoprotein 48.9 ng/mL 04/06/22 OB Optional Labs: Chlamydia trachomatis RNA Not Detected (NotDetected) 10/18/23 Neisseria gonorrhoeae RNA Not Detected (NotDetected) 10/18/23 Alpha Fetoprotein Triple Screen SEE NOTE 04/06/22 Labs Reviewed: cfdna-low risk--mln Declines cf/sma--mln neg msafp--ak 02/24/22- Hep B- Non reactive, Hep C- Non reactive, HIV- Non reactive GBS neg Allergies Allergy/AdvReac Type Severity Reaction Status Date / Time No Known Allergies Allergy Verified 05/07/24 11:56 Home Medications Medication Instructions Recorded Confirmed Type bupropion HCl 150 mg 24 hr tablet, 300 mg PO QAM 02/01/22 05/13/24 History extended release (Wellbutrin XL) prenat.vits,luis antonio,glr-qksp-kiwrg 1 tab PO DAILY 02/01/22 05/13/24 History aspirin 81 mg tablet,delayed 81 mg PO DAILY 05/13/24 05/13/24 History release Patient History Medical History Varicella vaccination hemorrhage, delivered Preeclampsia Depression Surgical History S/P wisdom tooth extraction Family History Aunt Breast cancer Denies family history of Ovarian cancer Colorectal cancer Social History Smoking Status: Never smoker Do You Dip or Chew Tobacco: No; Hx Alcohol Use: No Hx Substance Use: No Preferred Language: Bangladeshi Communication Ability: Effective Senior Data Scientist Required: No Beliefs That Will Affect Care: None marital status: marital status details: Dagoberto Corona [phone] Current Living Situation: Family Current Living Situation Comment: lives with spouse, child, 4 cats-spouse changing litter current occupational status: employed 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 DateGA wksLbr LgthBirth wtSexType delAnesPlaceDel ProvPreterm?Comment 09/09/22 38 8lb 7.3ozMNSVDEpiduralMNMCDr. DeangelokN preeclampsia, pp hemorrhage [employer] History noncontributory Physical Exam Constitutional: WD/WN, vitals as above Gastrointestinal (Abdomen): soft, gravid Psychiatric: A+Ox3, euthymic affect Genitourinary: cx--5/100/-2 per nursing toco--on admission q 2-4 min efm--category one, reactive nst. Results & Data Vital Signs (Past 12 Hours) Vital Signs Temp Pulse Resp BP Pulse Ox 07/22/24 06:24 85 05/13/24 06:24 126/66 05/13/24 06:23 90 05/13/24 06:23 128/61 05/13/24 06:22 100 05/13/24 06:22 71 05/13/24 06:22 115/68 05/13/24 06:21 60 05/13/24 06:21 116/66 05/13/24 06:20 50 L 05/13/24 06:20 126/74 05/13/24 06:19 47 L 05/13/24 06:19 129/76 05/13/24 06:18 41 L 05/13/24 06:18 137/79 05/13/24 06:17 100 05/13/24 06:17 57 L 05/13/24 06:16 55 L 05/13/24 06:16 104/61 05/13/24 06:15 70 05/13/24 06:15 67/46 L 05/13/24 06:12 100 05/13/24 06:12 122 H 05/13/24 06:12 90/55 L 05/13/24 06:11 150 H 05/13/24 06:11 109/60 05/13/24 06:10 142 H 05/13/24 06:10 110/53 L 05/13/24 06:09 130 H 05/13/24 06:09 106/51 L 05/13/24 06:08 100 H 05/13/24 06:08 110/64 05/13/24 06:07 99 05/13/24 06:07 87 05/13/24 06:06 105 H 05/13/24 06:06 96/55 L 05/13/24 06:04 72 05/13/24 06:04 99/53 L 05/13/24 06:02 99 05/13/24 06:02 43 L 05/13/24 05:59 96 H 05/13/24 05:59 130/84 05/13/24 05:57 100 05/13/24 05:57 99 H 05/13/24 05:56 96 H 05/13/24 05:56 135/91 05/13/24 05:53 103 H 05/13/24 05:53 131/88 05/13/24 05:52 100 05/13/24 05:52 102 H 05/13/24 05:47 100 05/13/24 05:47 110 H 05/13/24 05:42 100 05/13/24 05:42 82 05/13/24 05:41 90 05/13/24 05:41 134/91 05/13/24 05:37 100 05/13/24 05:37 87 05/13/24 05:32 100 05/13/24 05:32 99 H 05/13/24 05:27 100 05/13/24 05:27 87 05/13/24 05:15 100 05/13/24 05:15 81 05/13/24 03:12 84 135/84 05/13/24 03:08 36.9 C 18 Coding Level of Care Code None Diagnoses Normal labor O80; Z37.9
--- NOTE | 2024-05-13 10:13 | Labor Progress Brief Note ---
Date of Service May 13, 2024 Subjective comfortable with epidural Assessment & Plan (1) Normal labor: Plan patient aware i am assuming care. plan 2nd stage soon. Admission and Anticipated Discharge Date Admission Date: May 13, 2024 Physical Exam Constitutional: WD/WN, vitals as above Genitourinary: Manual OB Exam: + cervical dilation 9 cm, + cervical effacement 100%, + station + 1 and + amniotic fluid (arom) clear OB Exam Monitor Tracing: + external FHT monitor used, + external uterine monitor used (q3), + category I and + normal FHT variability Results & Data Vital Signs (Past 12 Hours) Vital Signs Temp Pulse Resp BP Pulse Ox 05/13/24 10:07 100 05/13/24 10:07 112 H 05/13/24 10:02 100 05/13/24 10:02 129 H 05/13/24 09:57 100 05/13/24 09:57 107 H 05/13/24 09:52 99 05/13/24 09:52 100 H 05/13/24 09:51 100 H 05/13/24 09:51 108/68 05/13/24 09:47 100 05/13/24 09:47 128 H 05/13/24 09:42 100 05/13/24 09:42 100 H 05/13/24 09:37 100 05/13/24 09:37 100 H 05/13/24 09:35 105 H 05/13/24 09:35 109/67 05/13/24 09:32 100 05/13/24 09:32 114 H 05/13/24 09:27 100 05/13/24 09:27 108 H 05/13/24 09:22 100 05/13/24 09:22 123 H 05/13/24 09:22 121/68 05/13/24 09:17 100 05/13/24 09:17 118 H 05/13/24 09:12 100 05/13/24 09:12 86 05/13/24 09:07 100 05/13/24 09:07 115 H 05/13/24 09:05 107 H 05/13/24 09:05 101/65 05/13/24 09:02 100 05/13/24 09:02 98 H 05/13/24 08:57 100 05/13/24 08:57 104 H 05/13/24 08:52 100 05/13/24 08:52 93 H 05/13/24 08:50 114 H 05/13/24 08:50 101/64 05/13/24 08:47 100 05/13/24 08:47 108 H 05/13/24 08:42 100 05/13/24 08:42 110 H 05/13/24 08:37 93 05/13/24 08:37 88 05/13/24 08:35 114 H 05/13/24 08:35 110/64 05/13/24 08:32 100 05/13/24 08:32 88 05/13/24 08:27 100 05/13/24 08:27 117 H 05/13/24 08:22 100 05/13/24 08:22 94 H 05/13/24 08:20 96 H 05/13/24 08:20 104/54 L 05/13/24 08:17 100 05/13/24 08:17 106 H 05/13/24 08:12 100 05/13/24 08:12 95 H 05/13/24 08:07 99 05/13/24 08:07 110 H 05/13/24 08:06 93 H 05/13/24 08:06 124/70 05/13/24 08:02 100 05/13/24 08:02 93 H 05/13/24 07:57 95 05/13/24 07:57 101 H 05/13/24 07:52 90 05/13/24 07:52 109 H 05/13/24 07:51 96 H 05/13/24 07:51 169/76 H 05/13/24 07:47 100 05/13/24 07:47 94 H 05/13/24 07:46 93 05/13/24 07:46 91 H 05/13/24 07:42 100 05/13/24 07:42 103 H 05/13/24 07:39 93 05/13/24 07:39 115 H 05/13/24 07:37 100 05/13/24 07:37 104 H 05/13/24 07:32 103 H 05/13/24 07:32 100/67 05/13/24 07:32 99 05/13/24 07:32 101 H 05/13/24 07:28 104 H 05/13/24 07:28 104/67 05/13/24 07:27 100 05/13/24 07:27 106 H 05/13/24 07:23 93 H 05/13/24 07:23 112/69 05/13/24 07:22 100 05/13/24 07:22 88 05/13/24 07:17 98 05/13/24 07:17 109 H 05/13/24 07:17 97/60 L 05/13/24 07:13 106 H 05/13/24 07:13 103/62 05/13/24 07:12 99 05/13/24 07:12 125 H 05/13/24 07:07 87 05/13/24 07:07 108/65 05/13/24 07:07 93 05/13/24 07:07 113 H 05/13/24 07:02 97 H 05/13/24 07:02 105/63 05/13/24 07:02 99 05/13/24 07:02 105 H 05/13/24 06:59 96 H 05/13/24 06:59 109/66 05/13/24 06:57 100 05/13/24 06:57 80 05/13/24 06:52 100 05/13/24 06:52 121 H 05/13/24 06:52 105/59 L 05/13/24 06:49 96 H 05/13/24 06:49 114/64 05/13/24 06:47 100 05/13/24 06:47 110 H 05/13/24 06:44 92 H 05/13/24 06:44 115/70 05/13/24 06:42 100 05/13/24 06:42 113 H 05/13/24 06:37 101 H 05/13/24 06:37 106/62 05/13/24 06:37 100 05/13/24 06:37 100 H 05/13/24 06:32 110 H 05/13/24 06:32 109/55 L 05/13/24 06:32 100 05/13/24 06:32 104 H 05/13/24 06:31 102 H 05/13/24 06:31 119/56 L 05/13/24 06:30 81 05/13/24 06:30 117/59 L 05/13/24 06:30 100 H 05/13/24 06:30 127/60 05/13/24 06:28 86 05/13/24 06:28 115/67 05/13/24 06:27 69 05/13/24 06:27 117/58 L 05/13/24 06:27 100 05/13/24 06:27 65 05/13/24 06:27 125/59 L 05/13/24 06:25 129 H 05/13/24 06:25 88/50 L 05/13/24 06:24 85 05/13/24 06:24 126/66 05/13/24 06:23 90 05/13/24 06:23 128/61 05/13/24 06:22 100 05/13/24 06:22 71 05/13/24 06:22 115/68 05/13/24 06:21 60 05/13/24 06:21 116/66 05/13/24 06:20 50 L 05/13/24 06:20 126/74 05/13/24 06:19 47 L 05/13/24 06:19 129/76 05/13/24 06:18 41 L 05/13/24 06:18 137/79 05/13/24 06:17 100 05/13/24 06:17 57 L 05/13/24 06:16 55 L 05/13/24 06:16 104/61 05/13/24 06:15 70 05/13/24 06:15 67/46 L 05/13/24 06:12 100 05/13/24 06:12 122 H 05/13/24 06:12 90/55 L 05/13/24 06:11 150 H 05/13/24 06:11 109/60 05/13/24 06:10 142 H 05/13/24 06:10 110/53 L 05/13/24 06:09 130 H 05/13/24 06:09 106/51 L 05/13/24 06:08 100 H 05/13/24 06:08 110/64 05/13/24 06:07 99 05/13/24 06:07 87 05/13/24 06:06 105 H 05/13/24 06:06 96/55 L 05/13/24 06:04 72 05/13/24 06:04 99/53 L 05/13/24 06:02 99 05/13/24 06:02 43 L 05/13/24 05:59 96 H 05/13/24 05:59 130/84 05/13/24 05:57 100 05/13/24 05:57 99 H 05/13/24 05:56 96 H 05/13/24 05:56 135/91 05/13/24 05:53 103 H 05/13/24 05:53 131/88 05/13/24 05:52 100 05/13/24 05:52 102 H 05/13/24 05:47 100 05/13/24 05:47 110 H 05/13/24 05:42 100 05/13/24 05:42 82 05/13/24 05:41 90 05/13/24 05:41 134/91 05/13/24 05:37 100 05/13/24 05:37 87 05/13/24 05:32 100 05/13/24 05:32 99 H 05/13/24 05:27 100 05/13/24 05:27 87 05/13/24 05:15 100 05/13/24 05:15 81 05/13/24 03:12 84 135/84 05/13/24 03:08 98.4 F 18 Coding Level of Care Code None Diagnoses Normal labor O80; Z37.9
[2024-05-13] MEDS: OXYTOCIN 30 UNITS/NSS 30 UNITS/500 ML BAG IV PRN (11:52)
--- NOTE | 2024-05-13 12:06 | Delivery Summary ---
Vaginal Delivery Summary Date of Service May 13, 2024 Vaginal Delivery Summary The patient dilated to complete and pushed to deliver a viable female Apgars 8 and 8 via over intact perineum. Upon my arrival, baby already delivered and on maternal abdomen and crying. Cord clamped and then doubly clamped and cut. Infant was vigorous and crying. Placenta delivered spontaneously and intact, three-vessel cord. Hemostasis not achieved with dilute pitocin and uterine massage and drainage of the bladder for approximately 200 cc under sterile conditions. Cytotec per rectum 800mcg given. Uterine tone improving. Small vaginal laceration reapproximated with 3-0 vicryl in usual fashion. Cervix and sulci intact. QBL 522 cc. Mother and baby stable in recovery. [facility] Vaginal Delivery Charge Delivery Type Details:
[2024-05-13] MEDS ORDERED: HYDROCORTISONE ACETATE 25 MG SUPP PR PRN (13:03)
[2024-05-13] MEDS ORDERED: BENZOCAINE 20% SPRY 85 APPLN/85 GM CAN EXT PRN (13:03)
[2024-05-13] MEDS ORDERED: OXYTOCIN 30 UNITS/NSS 30 UNITS/500 ML BAG IV PRN (13:03)
[2024-05-13] MEDS ORDERED: oxyCODONE/ACETAMINOPHEN 5mg/325mg TAB PO PRN (13:03)
--- NOTE | 2024-05-13 13:33 | Anesthesia Procedure Note ---
Date of Service May 13, 2024 Anesthesia Post Epidural Note Vital Signs Vital Signs: Temp Pulse Resp BP Pulse Ox 36.8 C 99 H 18 116/64 97 05/13/24 10:15 05/13/24 13:21 05/13/24 10:25 05/13/24 13:21 05/13/24 11:57 Notes Mental Status: alert / awake / arousable and participated in evaluation Patient Amnestic to Procedure: No Nausea / Vomiting: adequately controlled Pain: adequately controlled Airway Patency, RR, SpO2: stable & adequate BP & HR: stable & adequate Hydration State: stable & adequate Neuraxial Anesthesia: was administered and sensory block is resolving Anesthetic Complications: no major complications apparent and Pt Satisfied with anesthetic care Epidural: Removed without complications and With tip intact
[2024-05-13] MEDS: OXYTOCIN 20 UNITS/LR 1,002 ML IV SCH (14:55)
[2024-05-13] MEDS: DIPHTHER/TETAN/PERTUS Vaccine (Tdap, Adol/Adult) 0.5mL IM ONE (15:27)
[2024-05-13] MEDS: miSOPROStoL 200 MCG TAB PR ONE (15:28)
[2024-05-13] MEDS: DOCUSATE SODIUM 100 MG CAP PO SCH (20:06)
[2024-05-14 06:22] LABS: Hematocrit (blood only) 35.4 % (37.0-47.0); Hemoglobin 12.1 g/dl (12.0-16.0)
--- NOTE | 2024-05-14 07:27 | Obstetrical Progress Note ---
Date of Service May 14, 2024 Assessment & Plan (1) care and examination: Plan stable, doing well. desires to home today, instructions reviewed. f/u 6 wk pp. breast, rhpos, ri. hgb 12.1 Day #:: 1 Subjective Ambulation: ambulating normally Voiding: no voiding problems Diet Tolerance:: regular diet Lochia:: Small Feeding Type:: breast feeding no concerns, want to go home today Constitutional: + as per Subjective / HPI Physical Exam Constitutional WD/WN, vitals as above Respiratory normal respiratory effort, lungs clear to auscultation Cardiovascular Rate/Rhythm: regular rate and regular rhythm Gastrointestinal (Abdomen) Inspection/Auscultation: abdomen normal to inspection Percussion/Palpation: abdomen soft Fundus firm 1cm down Musculoskeletal nt calves tr edema Neurologic grossly normal Psychiatric A+Ox3, euthymic affect Results & Data Vital Signs (Past 12 Hours) Vital Signs Temp Pulse Resp BP Pulse Ox O2 Del Method 05/14/24 03:45 98.1 F 92 H 16 114/79 98 Room Air 05/13/24 23:30 98.1 F 84 16 115/75 98 Room Air 05/13/24 21:00 98.2 F 94 H 16 123/81 98 Room Air
[2024-05-14] MEDS: IBUPROFEN 600 MG TAB PO PRN (08:29)
[2024-05-14] MEDS: buPROPion XL 300 MG TABCR PO SCH (08:30)
[2024-05-14] MEDS: PRENATAL VITAMIN 1 TAB PO SCH (08:30)
[2024-05-14] MEDS ORDERED: bisacodyL 5 MG TABEC PO SCH (20:00)
== END 2024-05-14 13:15 | disposition home or self-care (01) | DRG 807 ==
LOC: OPB 02:55 → 4S1 03:01 → 4E2 15:22